=== PATIENT | female | born 1980 | race Caucasian/White ===

== ENCOUNTER → 2018-02-27 | Outpatient (CLI) | payer OTHER ==
[~2018-02-27] MED LIST: CYCL5TAB PO; LEVO1IUD2 INT UTER
== END | disposition home or self-care (01) ==
LOC: C.LABPBG 15:04
PROVIDERS: ATTEND Family Medicine
DX: Z00.00 Encounter for general adult medical examination without abnormal findings (principal)

== ENCOUNTER → 2018-03-14 | Outpatient (CLI) | payer OTHER | END | disposition home or self-care (01) | LOC: C.LABSPEC 15:27 | PROVIDERS: ATTEND Family Medicine | DX: R30.0 Dysuria (principal) ==

== ENCOUNTER 2023-10-30 20:47 | Inpatient (IN) ==
[2023-10-30 21:44] LABS: Basophils # (auto) 0.05 K/uL (0.00-0.20); Basophils % (auto) 0.7 %; Eosinophils # (auto) 0.02 K/uL (0.00-0.50); Eosinophils % (auto) 0.3 %; Hematocrit (blood only) 39.8 % (37.0-47.0); Hemoglobin 13.9 g/dl (12.0-16.0); Immature Granulocytes # (auto) 0.02 K/uL (0.01-0.20); Immature Granulocytes % (auto) 0.3 %; Lymphocytes # (auto) 1.27 K/uL (1.20-3.40); Lymphocytes % (auto) 16.9 %; Mean Corpuscular Hemoglobin 33.7 pg (25.0-34.0); Mean Corpuscular Hgb Conc 34.9 g/dL (32.0-36.0); Mean Corpuscular Volume 96.4 fL (80.0-100.0); Mean Platelet Volume 12.6 fL (9.4-12.4); Monocytes # (auto) 0.62 K/uL (0.11-0.59); Monocytes % (auto) 8.3 %; Neutrophils # (auto) 5.53 K/uL (1.40-6.50); Neutrophils % (auto) 73.5 %; Platelet Count 161 K/uL (130-400); RDW Coefficient of Variation 14.6 % (11.5-14.5); RDW Standard Deviation 51.4 fL (36.4-46.3); Red Blood Count 4.13 M/uL (4.20-5.40); White Blood Count 7.51 K/ul (4.8-10.8)
[2023-10-30 21:46] LABS: Appearance Urine Slightly Cloudy (Clear)
[2023-10-30 21:49] LABS: Specific Gravity Urine 1.018 (1.000-1.030)
[2023-10-30 21:53] LABS: Bacteria Urine None Seen (None Seen); Epithelial Cell Urine >20 /hpf (0-2); Hyaline Casts Urine Present /lpf (None Presnt); RBC Urine 0-2 /hpf (0-2); WBC Urine >50 /hpf (0-5)
[2023-10-30 22:03] LABS: BUN Creatinine Ratio 5.7 (10-20); Bilirubin,Total 9.8 mg/dl (0.2-1.0); Calcium 9.4 mg/dl (8.6-10.3); Creatinine Clr Calc Pharmacy 82.3 ml/min; Est GFR (African American) 124.7 ml/min; Est GFR (Non-African American) 107.6 ml/min; Globulin 4.1 gm/dl (2.5-4.0); Potassium 3.2 mmol/L (3.5-5.1); Total Protein 8.1 gm/dl (6.0-8.3)
--- NOTE | 2023-10-31 01:02 | Emergency Department Note ---
Impression & Plan Acute upper abdominal pain, Elevated LFTs, Jaundice ED Provider Note NAME: NURY FONTAINE AGE: 43 SEX: Female INFORMANT: Patient and ED PROVIDER(S): Castro Jay MD CHIEF COMPLAINT: Abd pain, vomiting PLAN: Disposition: Still a patient Outpatient prescription management: none Referral: none MEDICAL DECISION MAKING: Pt presented due to abdominal pain and vomiting. IV established and blood work obtained. Pt found to have signifcant elevation of LFTs. Treated with zofran and dilaudid PRN. CT imaging and US ordered. Frequently reassessed. CBC unremarkable as were other labs. Patient had unremarkable US and CT except for sludge in GB. Discussed need for further testing as an inpatient and they were in agreement. Contacted night hospitalist Dr. Puga who asked for MRCP and GI consult. Day crew will be notified. This was ordered. Discussed with Dr. You who asked for GI's input so I talked with Dr. Tolentino who noted it would be difficult to assess next steps without MR results. Since there may be a need for ERCP and transfer admission is pending at this time. Patient signed out to Dr. Matamoros at the change of shift. Care/management discussed with: reservation manager Level of care consideration(s): After review of the information above and other included data, I feel the patient requires escalation of care to admission. Triage Nursing notes: reviewed and agree them. Vital Signs: reviewed and remarkable for no significant abnormalities Additional History obtained from: Pts regarding previous symptoms and imaging as outpatient. Chronic Medical/Social Conditions affecting care: none Prior/ Outside/ External records reviewed: none Differential Diagnosis: PUD, biliary pathology, Renal colic, UTI, appendicitis, diverticulitis, mesenteric ischemia, aortic pathology, infections, inflammatory bowel disease, as well as other pathologies. Diagnostics, independently interpreted by me: ECG: none Cardiac Monitoring: Cardiac monitoring ordered by me: The patient was placed on continuous cardiac monitoring and observed. It revealed a normal sinus rhythm at 86 beats per minute without ectopy or evidence of dysrhythmia. Medical decision rules: none Imaging studies: I refer you to the EMR for further details. HPI: 43 year old Female arrives for evaluation of vomiting and abdominal pain. This started two days ago and is worsening. The patient also notes the following associated symptoms, jaundice,chills. The patient has found no relieving factors. Current pain is rated as 8/10. hx of biliary colic like symptoms with mild LFT elevations, but no definitive diagnosis made. Pt denies LOC, headache, fevers, visual changes, neck pain, chest pain, breathing difficulties, back pain, melena, hematochezia, urinary symptoms, numbness, weakness, lymphadenopathy, rash, or other complaints. PAST MEDICAL HISTORY: See Below, anxiety PAST SURGICAL HISTORY: See Below, c section SOCIAL HISTORY: See Below, HOME MEDICATIONS: See Below ALLERGIES: See Below VITALS: See Below PHYSICAL EXAMINATION: GENERAL: Awake, alert, uncomfortable-appearing, in no distress HENT: Normocephalic, atraumatic. Oropharynx unremarkable. EYES: Normal conjunctiva. Sclera icteric. NECK: Inspection normal. Non-tender. Supple. No nuchal rigidity. FROM. No masses. RESPIRATORY: Clear to auscultation. No wheezes. No rales. Normal respiratory effort. CARDIAC: Normal rate. Normal rhythm. No murmurs. No rubs. Extremities warm and well perfused. Pulses equal. No JVD. GI: Soft, non-distended. RUQ tenderness to palpation. No rebound or guarding. No masses. RECTAL: Deferred. MUSCULOSKELETAL: Atraumatic. Chest examination reveals no tenderness. The back is symmetrical on inspection without obvious abnormality. There is no CVA tenderness to palpation. No joint edema. LOWER EXTREMITIES: Calves are equal size bilaterally and non-tender. No edema. No discoloration. NEURO: Normal sensorium. No sensory or motor deficits noted. SKIN: No rash or jaundice noted. PROCEDURES: none CRITICAL CARE: none OBSERVATION NOTE: none Past Med/Surg History Medical History (Updated 11/01/23 @ 21:18 by Vijaya You MD) Fatty liver Dyskinesia of gallbladder GERD (gastroesophageal reflux disease) History of COVID-19 (02/2021) Feb 2021, January 2022 Anxiety Vertigo Common migraine without aura Heartburn Surgical History S/P tubal ligation H/O section x 2 Family History Grandmother (Maternal) Breast cancer Aunt Breast cancer MATERNAL Sister Migraine headache Grandfather Prostate cancer Father Fatty liver Other Myocardial infarction Denies family history of Ovarian cancer Colorectal cancer Social History Smoking Status: Former smoker Age Started Using Tobacco: 19; Age Quit Using Tobacco: 20; Hx Alcohol Use: Yes Alcohol type: wine Alcohol Intake Frequency: 4 or More x per/Week Hx Substance Use: No Preferred Language: Bengali Communication Ability: Effective Visual Impairment: No Limitations Hearing Ability: Normal [employer] Dies Required: No Beliefs That Will Affect Care: None marital status: Current Living Situation: Spouse Current Living Situation Comment: spouse, 3 children current occupational status: other current occupation: homemaker Feels Safe at Home: Yes Childhood Exposure to Second-Hand Smoke: No Diet: regular Diet Comment: well balanced diet caffeine: Yes (1 cup tea) during the past year weight has: remained stable Dental Care, Regularly: Yes Physical Activity Frequency: 3-4 Times per Week Physical Activity Frequency Comment: active w/ family/children Seatbelt Use: always Sunscreen Use: Yes Assistive Devices: None Allergies Allergies Allergy/AdvReac Type Severity Reaction Status Date / Time iodine Allergy Intermediate RASH Verified 09/18/23 11:08 ITCHING venlafaxine [From Effexor] AdvReac Intermediate Verified 09/18/23 11:08 Home Meds Home Medications Medication Instructions Recorded Confirmed fluticasone propionate 50 1 sprays intranasal DAILY #1 g 03/04/19 10/31/23 mcg/actuation nasal spray,suspension levonorgestrel 21 mcg/24 hours (8 1 ea intrauterine UD 04/04/19 10/31/23 yrs) 52 mg intrauterine device Previous Rx's Medication Instructions Recorded loratadine 10 mg tablet (Claritin) 10 mg PO DAILY #30 tabs 03/04/19 buspirone 10 mg tablet 10 mg PO BID PRN anxiety #90 tabs 02/26/23 topiramate 25 mg tablet 25 mg PO DAILY #90 tabs 04/16/23 sertraline 50 mg tablet 50 mg PO DAILY #90 tabs 05/09/23 famotidine 40 mg tablet 40 mg PO HS #90 tabs 05/24/23 pantoprazole 40 mg tablet,delayed 40 mg PO DAILY #90 tabs 09/03/23 release digital therapeutic,TAHMINA device #1 ea 09/12/23 ubrogepant 100 mg tablet (Ubrelvy) 100 mg PO ONCE PRN migraine 09/12/23 headache 30 days #10 tabs lorazepam 0.5 mg tablet (Ativan) 0.5 mg PO BID PRN anxiety #30 tabs 09/18/23 ondansetron 8 mg disintegrating 8 mg PO Q8H PRN nausea and 09/18/23 tablet vomiting #20 tabs fremanezumab-vfrm 225 mg/1.5 mL 225 mg (1.5 mL) subcut MONTHLY 90 10/11/23 subcutaneous auto-injector (Ajovy) days #135 mL ciprofloxacin HCl 500 mg tablet 500 mg PO BID 5 days #10 tabs 10/29/23 (Cipro) fluconazole 150 mg tablet 150 mg PO ONCE 1 day #1 tab 10/29/23 Results & Data (ED) Vital Signs Vital Signs - 24 hr 10/30/23 20:48 Temperature 36.9 C Temperature Source Temporal Artery Scan Pulse Rate 117 H Respiratory Rate 19 Respiratory Effort / Characteristics Non-Labored Spontaneous Respiratory Depth Normal Respiratory Pattern Regular Blood Pressure 135/89 Blood Pressure Mean 104 Pulse Oximetry 98 Oxygen Delivery Method Room Air Sepsis Recent Fever Within 48 Hours No Sepsis New/Unexplained Change in Mental Status N/A Sepsis Action Taken by Nursing No Action Required Laboratory Data 11/01/23 06:50 11/01/23 06:50 Lab Results 10/30/23 Range/Units 21:10 WBC 7.51 (4.8-10.8) K/ul RBC 4.13 L (4.20-5.40) M/uL Hgb 13.9 (12.0-16.0) g/dl Hct 39.8 (37.0-47.0) % MCV 96.4 (80.0-100.0) fL MCH 33.7 (25.0-34.0) pg MCHC 34.9 (32.0-36.0) g/dL RDW Std Deviation 51.4 H (36.4-46.3) fL RDW Coeff of Mamie 14.6 H (11.5-14.5) % Plt Count 161 (130-400) K/uL MPV 12.6 H (9.4-12.4) fL Immature Gran % (Auto) 0.3 % Neut % (Auto) 73.5 % Lymph % (Auto) 16.9 % [place] % (Auto) 8.3 % Eos % (Auto) 0.3 % Baso % (Auto) 0.7 % Neut # (Auto) 5.53 (1.40-6.50) K/uL Lymph # (Auto) 1.27 (1.20-3.40) K/uL [place] # (Auto) 0.62 H (0.11-0.59) K/uL Eos # (Auto) 0.02 (0.00-0.50) K/uL Baso # (Auto) 0.05 (0.00-0.20) K/uL Immature Gran # (Auto) 0.02 (0.01-0.20) K/uL Sodium 137 (136-145) mmol/L Potassium 3.2 L (3.5-5.1) mmol/L Chloride 97 L (98-107) mmol/L Carbon Dioxide 26 (21-32) mmol/L Anion Gap 14 H (3-11) BUN 4 L (6-23) mg/dl Creatinine 0.70 (0.6-1.2) mg/dl Est Cr Clr Drug Dosing 82.3 ml/min Est GFR ( Amer) 124.7 ml/min Est GFR (Non-Af Amer) 107.6 ml/min BUN/Creatinine Ratio 5.7 L (10-20) Glucose 105 H (70-99(Fasting)) mg/dl Calcium 9.4 (8.6-10.3) mg/dl Total Bilirubin 9.8 H (0.2-1.0) mg/dl AST 186 H (13-39) U/L ALT 66 H (7-52) U/L Alkaline Phosphatase 245 H (34-104) U/L Total Protein 8.1 (6.0-8.3) gm/dl Albumin 4.0 (3.4-5.0) gm/dl Globulin 4.1 H (2.5-4.0) gm/dl Albumin/Globulin Ratio 1.0 (0.9-2) Lipase 30 (11-82) U/L Urine Color See Comment Urine Appearance Slightly Cloudy (Clear) Urine pH Not Reportable Ur Specific [place] 1.018 (1.000-1.030) Urine Protein Not Reportable Urine Glucose (UA) Not Reportable Urine Ketones Not Reportable Urine Blood Not Reportable Urine Nitrite Not Reportable Urine Bilirubin Not Reportable Urine Urobilinogen Not Reportable Ur Leukocyte Esterase Not Reportable Urine RBC 0-2 (0-2) /hpf Urine WBC >50 H (0-5) /hpf Ur Epithelial Cells >20 H (0-2) /hpf Urine Bacteria None Seen (None Seen) Hyaline Casts Present A (None Presnt) /lpf Administered Medications Acetaminophen (Acetaminophen 325 Mg Tab) 650 mg PO Q8H PRN PRN Reason: pain/fever Stop: 11/30/23 11:35 Last Admin: 11/01/23 20:38 Dose: 650 mg Documented By: Admin: 11/01/23 12:26 Dose: 650 mg Documented By: JEAN Buspirone HCl (Buspirone 5 Mg Tab) 10 mg PO BID PRN PRN Reason: anxiety Stop: 11/30/23 11:35 Last Admin: 11/01/23 09:09 Dose: 10 mg Documented By: JEAN Enoxaparin Sodium (Enoxaparin Inj 40 Mg/0.4 Ml Syr) 40 mg SQ Q24H BONIFACIO Stop: 11/30/23 11:59 Last Admin: 11/01/23 12:18 Dose: 40 mg Documented By: Admin: 10/31/23 13:12 Dose: 40 mg Documented By: ROBY Famotidine (Famotidine 40 Mg Tablet) 40 mg PO HS [facility] Stop: 11/30/23 20:59 Last Admin: 11/01/23 20:39 Dose: 40 mg Documented By: Admin: 10/31/23 21:27 Dose: 40 mg Documented By: JESSI Fluticasone Propionate (Fluticasone Propionate Na Spr 16 Gm Btl) 1 sprays PAMELA DAILY BONIFACIO Stop: 12/01/23 08:59 Last Admin: 11/01/23 09:56 Dose: Not Given Documented By: JEAN Hydromorphone HCl (Hydromorphone Inj 0.5 Mg/0.5 Ml Syr) 0.5 mg IV Q6H PRN PRN Reason: moderate-severe Pain Stop: 11/14/23 11:43 Last Admin: 11/01/23 18:37 Dose: 0.5 mg Documented By: Admin: 10/31/23 19:58 Dose: 0.5 mg Documented By: Admin: 10/31/23 13:19 Dose: 0.5 mg Documented By: ROBY Hydroxyzine HCl (Hydroxyzine Hcl 25 Mg Tab) 25 mg PO Q6H PRN PRN Reason: Itching Stop: 11/30/23 15:55 Last Admin: 10/31/23 21:26 Dose: 25 mg Documented By: JESSI Sodium Chloride (Nss) 1,000 mls @ 100 mls/hr IV .Q10H BONIFACIO Stop: 11/30/23 01:14 Last Admin: 11/01/23 17:26 Dose: 100 mls/hr Documented By: Infusion: 11/01/23 17:26 Dose: Infused Documented By: [facility] Infusion: 11/01/23 09:56 Dose: 50 mls/hr Documented By: [facility] Admin: 11/01/23 09:09 Dose: 125 mls/hr Documented By: [facility] Infusion: 11/01/23 09:09 Dose: Infused Documented By: [facility] Admin: 11/01/23 01:29 Dose: 125 mls/hr Documented By: Infusion: 11/01/23 01:23 Dose: Infused Documented By: Infusion: 10/31/23 22:40 Dose: 125 mls/hr Documented By: Infusion: 10/31/23 21:56 Dose: 0 mls/hr Documented By: [facility] [place] Admin: 10/31/23 16:39 Dose: 125 mls/hr Documented By: [facility] Infusion: 10/31/23 16:39 Dose: Infused Documented By: [facility] Admin: 10/31/23 10:30 Dose: 125 mls/hr Documented By: Bryson Infusion: 10/31/23 09:19 Dose: Infused Documented By: Bryson Admin: 10/31/23 01:19 Dose: 125 mls/hr Documented By: YOANDY Loratadine (Loratadine 10 Mg Tab) 10 mg PO DAILY BONIFACIO Stop: 12/01/23 08:59 Last Admin: 11/01/23 09:09 Dose: 10 mg Documented By: MARY Lorazepam (Lorazepam 0.5 Mg Tab) 0.5 mg PO BID PRN PRN Reason: anxiety Stop: 11/30/23 11:35 Last Admin: 11/01/23 16:14 Dose: 0.5 mg Documented By: JEAN Pantoprazole Sodium (Pantoprazole 40 Mg Tab) 40 mg PO BID BONIFACIO Stop: 11/30/23 11:44 Last Admin: 11/01/23 20:38 Dose: 40 mg Documented By: Admin: 11/01/23 12:17 Dose: 40 mg Documented By: Admin: 10/31/23 21:27 Dose: 40 mg Documented By: Admin: 10/31/23 13:11 Dose: 40 mg Documented By: ROBY Sertraline HCl (Sertraline Hcl 50 Mg Tablet) 50 mg PO DAILY BONIFACIO Stop: 11/30/23 11:44 Last Admin: 11/01/23 09:09 Dose: 50 mg Documented By: Admin: 10/31/23 13:11 Dose: 50 mg Documented By: ROBY Topiramate (Topiramate 25 Mg Tab) 25 mg PO DAILY BONIFACIO Stop: 11/30/23 11:44 Last Admin: 11/01/23 09:09 Dose: 25 mg Documented By: Admin: 10/31/23 13:11 Dose: 25 mg Documented By: ROBY Discontinued Medications Diphenhydramine HCl (Diphenhydramine 50 Mg/Ml Vial) 25 mg IV NOW STA Stop: 10/31/23 01:06 Last Admin: 10/31/23 02:32 Dose: 25 mg Documented By: YOANDY Hydromorphone HCl (Hydromorphone Inj 0.5 Mg/0.5 Ml Syr) 0.5 mg IV Q15M PRN PRN Reason: Pain Stop: 11/14/23 01:01 Last Admin: 10/31/23 05:34 Dose: 0.5 mg Documented By: Admin: 10/31/23 01:20 Dose: 0.5 mg Documented By: YOANDY Potassium Chloride (K [place] / Wtr) 10 meq in 100 mls @ 100 mls/hr IV Q1H BONIFACIO Stop: 11/01/23 13:29 Last Infusion: 11/01/23 17:26 Dose: Infused Documented By: Admin: 11/01/23 16:00 Dose: 100 mls/hr Documented By: Infusion: 11/01/23 15:27 Dose: Infused Documented By: Admin: 11/01/23 14:27 Dose: 100 mls/hr Documented By: Infusion: 11/01/23 14:13 Dose: Infused Documented By: [facility] Admin: 11/01/23 13:13 Dose: 100 mls/hr Documented By: Infusion: 11/01/23 13:13 Dose: Infused Documented By: [facility] Admin: 11/01/23 12:17 Dose: 100 mls/hr Documented By: Infusion: 11/01/23 10:09 Dose: Infused Documented By: [facility] Admin: 11/01/23 09:09 Dose: 100 mls/hr Documented By: JEAN Magnesium Sulfate/Dextrose (Magnesium Sulfate / D5w) 1 gm in 100 mls @ 50 mls/hr IV Q2H BONIFACIO Stop: 11/01/23 14:29 Last Infusion: 11/01/23 16:27 Dose: Infused Documented By: [facility] Admin: 11/01/23 14:12 Dose: 50 mls/hr Documented By: Infusion: 11/01/23 14:12 Dose: Infused Documented By: [facility] Admin: 11/01/23 12:17 Dose: 50 mls/hr Documented By: [facility] Infusion: 11/01/23 11:09 Dose: Infused Documented By: [facility] Admin: 11/01/23 09:09 Dose: 50 mls/hr Documented By: JEAN Sincalide 0.99 mcg/ Sodium (Chloride) 100.99 mls @ 200 mls/hr IV NOW ONE Stop: 11/01/23 10:45 Last Admin: 11/01/23 12:19 Dose: Not Given Documented By: JEAN Ioversol (Optiray 320 100ml) 100 ml IV ONCE ONE Stop: 10/31/23 03:49 Last Admin: 10/31/23 03:48 Dose: 91 ml Documented By: LEONID Lorazepam (Lorazepam 1 Mg Tab) 1 mg SL NOW STA Stop: 10/31/23 07:55 Last Admin: 10/31/23 08:00 Dose: 1 mg Documented By: RHONDA Methylprednisolone (Methylprednisolone 125 Mg/2 Ml Vial) 125 mg IV NOW STA Stop: 10/31/23 01:06 Last Admin: 10/31/23 02:32 Dose: 125 mg Documented By: YOANDY Ondansetron HCl (Ondansetron Inj 2 Mg/Ml 2 Ml Vial) 4 mg IV NOW STA Stop: 10/31/23 01:03 Last Admin: 10/31/23 01:20 Dose: 4 mg Documented By: YOANDY Potassium Chloride (Potassium Chloride Crtab 20 Meq Tabcr) 40 meq PO NOW STA Stop: 10/31/23 11:37 Last Admin: 10/31/23 13:09 Dose: 40 meq Documented By: NDW Discharge Plan Visit Data Chief Complaint: Vomiting Stated Complaint: ABD PAIN, NAUSEA, VOMITING ED Provider: Castro Jay Discharge Problem: Acute upper abdominal pain, Elevated LFTs, Jaundice Patient Disposition: Admitted As Inpatient Discharge Instructions Interventions: ED Discharge Assessment Last Done: 10/31/23 14:02
[2023-10-31] MEDS: SODIUM CHLORIDE 0.9% 1,000 ML IV SCH (01:19)
[2023-10-31] MEDS: ONDANSETRON INJ 2 MG/ML 2 ML VIAL IV STA (01:20)
[2023-10-31] MEDS: HYDROmorphone INJ 0.5 MG/0.5 ML SYR IV PRN ×2 (01:20→13:19)
[2023-10-31] MEDS: methylPREDNISolone 125 MG/2 ML VIAL IV STA (02:32)
[2023-10-31] MEDS: diphenhydrAMINE 50 MG/ML VIAL IV STA (02:32)
[2023-10-31] MEDS: OPTIRAY 320 100ml IV ONE (03:48)
--- NOTE | 2023-10-31 04:10 | Ultrasound Report ---
Exam(s): US GALLBLADDER EXAM: US Abdomen Limited, Gallbladder CLINICAL HISTORY: Reason for exam: elevated LFTs. TECHNIQUE: Real-time ultrasound of the right upper quadrant with image documentation. COMPARISON: No relevant prior studies available. FINDINGS: Liver: Coarsened hepatic echotexture with increased hepatic echogenicity. Gallbladder: Biliary sludge without cholelithiasis. Gallbladder wall measures 2 mm in thickness. Negative sonographic Hoffmann sign. Common bile duct: Common bile duct measures 3 mm in diameter. No stones. No dilation. Pancreas: Unremarkable as visualized. Right kidney: Right kidney measures 10.6 cm without hydronephrosis. IMPRESSION: Hepatic steatosis Biliary sludge without cholelithiasis or sonographic evidence of acute cholecystitis . Electronically signed by: Corby Stoddard MD 10/31/23 04:09 AM
--- NOTE | 2023-10-31 04:34 | CT Scan Report ---
Exam(s): CT ABDOMEN + PELVIS With Contrast Oral - High Density Amt: 30 ML GASTRO, IV Amt: 91 ML OPTIRAY 320 EXAM: CT Abdomen and Pelvis With Intravenous Contrast CLINICAL HISTORY: Reason for exam: elevated lfts, RUQ abd pain. TECHNIQUE: Axial computed tomography images of the abdomen and pelvis with intravenous contrast. CTDI is 7.78 mGy and DLP is 340.47 mGy-cm. Automated exposure control was utilized for the study. A dose lowering technique was utilized adhering to the principles of ALARA. CONTRAST: Patient received 30 ML GASTRO of Oral - High Density and 91 ML OPTIRAY 320 of IV contrast COMPARISON: No relevant prior studies available. FINDINGS: Lung bases: Unremarkable. No mass. No consolidation. ABDOMEN: Liver: Hepatic steatosis. Gallbladder and bile ducts: Unremarkable. No calcified stones. No ductal dilation. Pancreas: Unremarkable. No mass. No ductal dilation. Spleen: Unremarkable. No splenomegaly. Adrenals: Unremarkable. No mass. Kidneys and ureters: Unremarkable. No solid mass. No hydronephrosis. Stomach and bowel: Unremarkable. No obstruction. No mucosal thickening. PELVIS: Appendix: No findings to suggest acute appendicitis. Bladder: Unremarkable. No mass. Reproductive: IUD within the uterus. ABDOMEN and PELVIS: Intraperitoneal space: Unremarkable. No free air. No significant fluid collection. Bones/joints: No acute fracture. No dislocation. Soft tissues: Unremarkable. Vasculature: Unremarkable. No abdominal aortic aneurysm. Lymph nodes: Unremarkable. No enlarged lymph nodes. IMPRESSION: No acute findings in the abdomen or pelvis. Normal appearing appendix Hepatic steatosis Electronically signed by: Corby Stoddard MD 10/31/23 04:33 AM
[2023-10-31] MEDS: LORazepam 1 MG TAB SL STA (08:00)
--- NOTE | 2023-10-31 09:35 | Magnetic Resonance Report ---
MRCP CLINICAL HISTORY: elevated LFTs TECHNIQUE: Utilizing a 1.5 Tamara magnet and dedicated coil, multiplanar, multiecho imaging of the [facility] abdomen was performed utilizing heavily T2 weighted pulsing sequences without IV contrast. COMPARISON STUDY: Right upper quadrant ultrasound and CT of the abdomen and pelvis October 31, 2023. FINDINGS: No intra or extrahepatic biliary ductal dilatation is present. No common bile duct calculi are identified. No pancreatic ductal dilatation is present. There is no peripancreatic fluid. Hepatic steatosis is better depicted on CT and ultrasound performed earlier today. No hepatic lesions are id entified on unenhanced exam. Comment bladder sludge is better depicted on prior ultrasound. There is no gallbladder wall thickening. No pericholecystic fluid. No abdominal lymphadenopathy is present. Ca liber of visualized small and large bowel are normal. IMPRESSION: 1. No biliary ductal dilatation. No common bile duct calculi identified. 2. Hepatic steatosis and gallbladder sludge, better depicted on prior ultrasound. No evidence for acu te cholecystitis. ACT 112: Negative or not required by law. Electronically signed by: Jaxon Cerrato M.D. 10/31/2023 9:33 AM
--- NOTE | 2023-10-31 09:47 | Emergency Department Note ---
ED Visit Note Patient signed out to me at change of shift from Dr. Jay. Patient awaiting MRCP and results to decide final disposition. MRCP read by radiology as negative. I alerted Dr. You who will admit the patient. .
--- NOTE | 2023-10-31 10:06 | History & Physical Report ---
Date of Service October 31, 2023 Assessment & Plan (1) Elevated LFTs: Plan: Presents with elevated LFTs in a cholestatic pattern, new. With associated N/V/abd pain and 20+ lb weight loss over the last year. RUQ US with bile slydge in GB CT A/P with fatty liver and hepatomegaly but no GB issues, no stones, no CBD dilation MRCP negative Suspect biliary obstruction with stricture or choledocholithiasis not showing up on imaging. No evidence of sepsis or infection at this time-afebrile, no leukocytosis-no antibiotics or urgent need for EUS/ERCP at this time Only new medication is Ajovy and no known side effect of liver injury Could have underlying PBC or PSC Appreciate GI, Surgery consults Plan for HIDA scan tomorrow to further assess for cholecystitis Clear liquids for now, NPO after midnight Follow LFTs, CBC, INR, BMP Check AMA, anti-smooth muscle ab, KEYON, anti-actin IgG, acute Hepatitis panel, CMV, EBV Checked portal vein Doppler-neg for PVT Will discuss with [facility] advanced endoscopist in AM after HIDA scan to see if needs urgent transfer for ERCP vs outpatient evaluation COntinue hydration with IVFs, antiemetics as needed Hydroxyzine prn itching from jaundice (2) Acute upper abdominal pain: Plan: as above, related to hepatic inflammation, possibly choledocholithiasis dilaudid IV prn, APAP prn (3) Anxiety: Plan: continue home lorazepam, buspar, and sertraline (4) Common migraine without aura: Plan: on Ajovy injections once monthly no acute issues (5) Hypokalemia: Plan: replace with po KCl follow BMP, magnesium (6) GERD (gastroesophageal reflux disease): Plan: continue PPI, pepcid Plan DVT proph-SCDs Dispo-admit to med/surg Discussed care with at bedside History of Present Illness Chief Complaint: jaundice, N/V, abdominal pain Primary Care Provider: Amalia Molina DO This pt is a 43 yo female with a h/o migraine headaches, anxiety, and GERD who presents with progressively worsening mid and right sided abdominal pain with associated nausea/vomiting. She has been having these episodes multiple times per month for the last year where she vomits and has abdominal pain. These episodes became more frequent in the last 2 months especially and she has lost 25 lbs of weight from inability to eat or drink much. She denies hematemesis, melena, or BRBPR. Episodes tend to come on after trying to eat but sometimes she wakes up and has pain and nausea. Denies EtOH use. Her is a [employer] and noted her to be jaundiced and brought her for further evaluation. LFTs markedly abnormal in ER. MRCP obtained STAT which did not show any acute obstruction,. No acute winsome on RUQ US and CT abd/pel here. Given no urgent need for ERCP, will admit to this facility for treatment of her nausea/vomiting, and to expedite specialist evaluation Allergies Allergy/AdvReac Type Severity Reaction Status Date / Time iodine Allergy Intermediate RASH Verified 09/18/23 11:08 ITCHING venlafaxine [From Effexor] AdvReac Intermediate Verified 09/18/23 11:08 Home Medications Medication Instructions Recorded Confirmed Type fluticasone propionate 50 1 sprays intranasal DAILY #1 g 03/04/19 10/31/23 History mcg/actuation nasal spray,suspension loratadine 10 mg tablet (Claritin) 10 mg PO DAILY #30 tabs 03/04/19 10/31/23 Rx levonorgestrel 21 mcg/24 hours (8 1 ea intrauterine UD 04/04/19 10/31/23 History yrs) 52 mg intrauterine device buspirone 10 mg tablet 10 mg PO BID PRN anxiety #90 tabs 02/26/23 10/31/23 Rx topiramate 25 mg tablet 25 mg PO DAILY #90 tabs 04/16/23 10/31/23 Rx sertraline 50 mg tablet 50 mg PO DAILY #90 tabs 05/09/23 10/31/23 Rx famotidine 40 mg tablet 40 mg PO HS #90 tabs 05/24/23 10/31/23 Rx pantoprazole 40 mg tablet,delayed 40 mg PO DAILY #90 tabs 09/03/23 10/31/23 Rx release digital therapeutic,TAHMINA device #1 ea 09/12/23 09/18/23 Rx ubrogepant 100 mg tablet (Ubrelvy) 100 mg PO ONCE PRN migraine 09/12/23 10/31/23 Rx headache 30 days #10 tabs lorazepam 0.5 mg tablet (Ativan) 0.5 mg PO BID PRN anxiety #30 tabs 09/18/23 10/31/23 Rx ondansetron 8 mg disintegrating 8 mg PO Q8H PRN nausea and 09/18/23 10/31/23 Rx tablet vomiting #20 tabs fremanezumab-vfrm 225 mg/1.5 mL 225 mg (1.5 mL) subcut MONTHLY 90 10/11/23 10/31/23 Rx subcutaneous auto-injector (Ajovy) days #135 mL ciprofloxacin HCl 500 mg tablet 500 mg PO BID 5 days #10 tabs 10/29/23 10/31/23 Rx (Cipro) fluconazole 150 mg tablet 150 mg PO ONCE 1 day #1 tab 10/29/23 10/31/23 Rx Past Med/Surg History Medical History (Updated 10/31/23 @ 23:46 by Vijaya You MD) GERD (gastroesophageal reflux disease) History of COVID-19 (02/2021) Feb 2021, January 2022 Anxiety Vertigo Common migraine without aura Heartburn Surgical History S/P tubal ligation H/O section x 2 Family History Grandmother (Maternal) Breast cancer Aunt Breast cancer MATERNAL Sister Migraine headache Grandfather Prostate cancer Father Fatty liver Other Myocardial infarction Denies family history of Ovarian cancer Colorectal cancer Social History Smoking Status: Former smoker Age Started Using Tobacco: 19; Age Quit Using Tobacco: 20; Hx Alcohol Use: Yes Alcohol type: wine Alcohol Intake Frequency: 4 or More x per/Week Hx Substance Use: No Preferred Language: Congolese Communication Ability: Effective Visual Impairment: No Limitations Hearing Ability: Normal Logging Superintendent Required: No Beliefs That Will Affect Care: None marital status: Current Living Situation: Spouse Current Living Situation Comment: spouse, 3 children current occupational status: other current occupation: homemaker Feels Safe at Home: Yes Childhood Exposure to Second-Hand Smoke: No Diet: regular Diet Comment: well balanced diet caffeine: Yes (1 cup tea) during the past year weight has: remained stable Dental Care, Regularly: Yes Physical Activity Frequency: 3-4 Times per Week Physical Activity Frequency Comment: active w/ family/children Seatbelt Use: always Sunscreen Use: Yes Assistive Devices: Glasses Review of Systems Review of Systems: All systems reviewed & are unremarkable except as noted in HPI & below Physical Exam Constitutional: WD/WN, vitals as above Neck: trachea midline, no thyromegaly Respiratory: normal respiratory effort, lungs clear to auscultation Cardiovascular: RRR, no murmur, no edema Chest (Breasts): Chest: normal inspection of chest Gastrointestinal (Abdomen): Inspection/Auscultation: abdomen normal to inspection Musculoskeletal: Extremities: extremities normal to inspection; no cyanosis and no clubbing Skin: + jaundice Neurologic: moves all extremities and awake; no focal motor deficits Psychiatric: A+Ox3, euthymic affect Lymphatic: no lymphedema Results & Data Results & Data Vital Signs (Past 12 Hours) Vital Signs Pulse Pulse Resp BP BP Pulse Ox O2 Del Method 10/31/23 09:52 94 H 10/31/23 09:16 105 H 24 95 10/31/23 09:16 126/89 10/31/23 09:14 100 H 16 96 10/31/23 08:10 97 10/31/23 07:30 92 H 27 H 96 10/31/23 07:30 121/80 10/31/23 07:00 92 H 13 98 10/31/23 07:00 128/94 10/31/23 06:30 132/95 10/31/23 06:30 88 15 96 10/31/23 06:05 124/81 10/31/23 06:05 92 H 19 96 10/31/23 06:00 93 H 15 97 10/31/23 06:00 88 15 129/81 96 Room Air 10/31/23 05:49 96 H 10/31/23 05:30 90 15 96 10/31/23 05:30 134/90 10/31/23 05:00 94 H 15 97 10/31/23 05:00 135/99 10/31/23 05:00 87 15 134/90 98 Room Air 10/31/23 04:30 136/94 10/31/23 04:30 93 H 15 97 10/31/23 04:00 134/87 10/31/23 04:00 101 H 13 97 10/31/23 03:30 116/80 10/31/23 03:30 99 H 25 H 98 10/31/23 03:00 117/93 10/31/23 03:00 92 H 18 97 10/31/23 03:00 96 H 17 134/87 96 10/31/23 02:39 101 H 23 98 10/31/23 02:39 125/96 10/31/23 02:30 106 H 21 10/31/23 02:25 110 H 17 10/31/23 01:52 100 H 10/31/23 01:30 102 H 25 H 99 10/31/23 01:30 137/98 10/31/23 01:19 105 H 13 100 10/31/23 01:16 105 H 17 98 Room Air 10/31/23 01:15 107 H 17 139/93 98 Room Air Laboratory Results 10/31/23 10/30/23 Range/Units 10:26 21:10 TSH 1.290 (0.300-4.500) uIu/ml Urine RBC 0-2 (0-2) /hpf Urine WBC >50 H (0-5) /hpf Ur Epithelial Cells >20 H (0-2) /hpf Urine Bacteria None Seen (None Seen) Hyaline Casts Present A (None Presnt) /lpf KEYON Screen Pending Anti-Mitochondrial Ab Pending Actin IgG Antibody Pending CMV IgM Ab Pending CMV IgG Ab/TORCH Pending EBV Capsid Ag IgG Ab Pending EBV Capsid Ag IgM Ab Pending EBV EA Restrict+Diffuse Pending EBV Nuclear Antigen Ab Pending EBV Antibody Interp Pending Hepatitis A IgM Ab Pending Hep Bs Antigen Pending Hep Bs Ag Confirmation Pending Hep B Core IgM Ab Pending Hepatitis C Ab (EIA) Pending Diagnostic Findings Abdomen/Pelvis CT 10/31/23 01:02 Exam(s): CT ABDOMEN + PELVIS With Contrast Oral - High Density Amt: 30 ML GASTRO, IV Amt: 91 ML OPTIRAY 320 EXAM: CT Abdomen and Pelvis With Intravenous Contrast CLINICAL HISTORY: Reason for exam: elevated lfts, RUQ abd pain. TECHNIQUE: Axial computed tomography images of the abdomen and pelvis with intravenous contrast. CTDI is 7.78 mGy and DLP is 340.47 mGy-cm. Automated exposure control was utilized for the study. A dose lowering technique was utilized adhering to the principles of ALARA. CONTRAST: Patient received 30 ML GASTRO of Oral - High Density and 91 ML OPTIRAY 320 of IV contrast COMPARISON: No relevant prior studies available. FINDINGS: Lung bases: Unremarkable. No mass. No consolidation. ABDOMEN: Liver: Hepatic steatosis. Gallbladder and bile ducts: Unremarkable. No calcified stones. No ductal dilation. Pancreas: Unremarkable. No mass. No ductal dilation. Spleen: Unremarkable. No splenomegaly. Adrenals: Unremarkable. No mass. Kidneys and ureters: Unremarkable. No solid mass. No hydronephrosis. Stomach and bowel: Unremarkable. No obstruction. No mucosal thickening. PELVIS: Appendix: No findings to suggest acute appendicitis. Bladder: Unremarkable. No mass. Reproductive: IUD within the uterus. ABDOMEN and PELVIS: Intraperitoneal space: Unremarkable. No free air. No significant fluid collection. Bones/joints: No acute fracture. No dislocation. Soft tissues: Unremarkable. Vasculature: Unremarkable. No abdominal aortic aneurysm. Lymph nodes: Unremarkable. No enlarged lymph nodes. IMPRESSION: No acute findings in the abdomen or pelvis. Normal appearing appendix Hepatic steatosis Electronically signed by: Corby Stoddard MD 10/31/23 04:33 AM Gallbladder Ultrasound 10/31/23 01:02 Exam(s): US GALLBLADDER EXAM: US Abdomen Limited, Gallbladder CLINICAL HISTORY: Reason for exam: elevated LFTs. TECHNIQUE: Real-time ultrasound of the right upper quadrant with image documentation. COMPARISON: No relevant prior studies available. FINDINGS: Liver: Coarsened hepatic echotexture with increased hepatic echogenicity. Gallbladder: Biliary sludge without cholelithiasis. Gallbladder wall measures 2 mm in thickness. Negative sonographic Hoffmann sign. Common bile duct: Common bile duct measures 3 mm in diameter. No stones. No dilation. Pancreas: Unremarkable as visualized. Right kidney: Right kidney measures 10.6 cm without hydronephrosis. IMPRESSION: Hepatic steatosis Biliary sludge without cholelithiasis or sonographic evidence of acute cholecystitis . Electronically signed by: Corby Stoddard MD 10/31/23 04:09 AM Cholangiopancreatography MRI 10/31/23 06:57 MRCP CLINICAL HISTORY: elevated LFTs TECHNIQUE: Utilizing a 1.5 Tamara magnet and dedicated coil, multiplanar, multiecho imaging of the upper abdomen was performed utilizing heavily T2 weighted pulsing sequences without IV contrast. COMPARISON STUDY: Right upper quadrant ultrasound and CT of the abdomen and pelvis October 31, 2023. FINDINGS: No intra or extrahepatic biliary ductal dilatation is present. No common bile duct calculi are identified. No pancreatic ductal dilatation is present. There is no peripancreatic fluid. Hepatic steatosis is better depicted on CT and ultrasound performed earlier today. No hepatic lesions are identified on unenhanced exam. Comment bladder sludge is better depicted on prior ultrasound. There is no gallbladder wall thickening. No pericholecystic fluid. No abdominal lymphadenopathy is present. Caliber of visualized small and large bowel are normal. IMPRESSION: 1. No biliary ductal dilatation. No common bile duct calculi identified. 2. Hepatic steatosis and gallbladder sludge, better depicted on prior ultrasound. No evidence for acute cholecystitis. ACT 112: Negative or not required by law. Electronically signed by: Jaxon Cerrato M.D. 10/31/2023 9:33 AM Portal Vein US 10/31/23 15:15 Exam(s): US OTHER EXAM: US Duplex Arterial/Venous of the Abdomen, Complete CLINICAL HISTORY: Reason for exam: elevated LFTs, abdominal pain. TECHNIQUE: Real-time duplex ultrasound scan of the abdomen integrating B-mode two- dimensional vascular structure, Doppler spectral analysis and color flow Doppler imaging. COMPARISON: Abdominal ultrasound from October 31, 2023 FINDINGS: Portal veins: The portal vein is patent with normal hepatopetal flow in the main portal vein velocity 18 cm/s. The right portal vein is patent, 11 cm/s. The left portal vein is patent, 11 cm/s. Hepatic artery: The hepatic artery is patent with peak systolic velocity of 70 cm/s and a normal waveform with resistive index of 0.69. The right and left hepatic arteries are patent with resistive indices of 0.61 and 0.64. Hepatic veins: The left, right, and middle hepatic veins are patent and unremarkable. Splenic vein: Unremarkable. Normal flow on color and spectral Doppler imaging. Inferior vena cava: The IVC is patent and unremarkable. IMPRESSION: No acute findings in the abdominal vasculature. Electronically signed by: Celso Puga MD 10/31/23 23:02 PM Code Status & VTE Plan Code Status FULL CODE VTE Prophylaxis Plan VTE Prophylaxis will be ordered: Yes PG Care Time/CCT Total # of Minutes Spent Total Time Spent with Patient: Total time spent is greater than 50% in coordination of care (as documented) at patient's floor/unit and/or counseling patient: Coding Level of Care Code 96133 INT INP/OBS CARE 3/75MIN Diagnoses Elevated LFTs R79.89 Acute upper abdominal pain R10.10 Anxiety F41.9 Common migraine without aura G43.009 Hypokalemia E87.6 GERD (gastroesophageal reflux disease) K21.9
--- NOTE | 2023-10-31 11:27 | Gastrointestinal Consultation ---
Date of Consultation October 31, 2023 Assessment & Plan (1) Jaundice: (2) Elevated LFTs: (3) Acute upper abdominal pain: Plan Patient with a several year history of nausea, vomiting, abdominal pain that has worsened in the past few weeks. new jaundice. imaging thus far has been unremarkable. discussed case with Dr. Sparks. - start protonix 40mg po bid. - check KEYON, AMA, ASMA, acute hep panel, CMV, and EBV. - check HIDA scan. - recommend surgical consultation for possible gallbladder etiology. Supervising Physician Co-Signing Physician Notes Agree with WYATT Harley as above Interviewed and examined patient and discussed case and agree with findings/exam Abd: Soft, NT, ND, +BS Continue current therapy and supportive care Await results from HIDA and bloodwork History of Present Illness Reason for Consultation: elevated LFTs, bile sludge, pending MRCP. Requesting Physician: Castro Jay MD Attending Physician: Vijaya You MD History of Present Illness Patient is a 43 year old female who presented to the ED with complains of worsening nausea, vomiting, and abdominal pain. She tells me that she has not felt right since she had covid in 2020 but her symptoms worsened over the past few weeks. symptoms are worsened with foods and eating. she has been having issues with oral intake. heartburn is controlled as outpatient with combination of pepcid and protonix. she does report jaundice which is new this week and she first noticed 2 days ago. reports rare etoh use. Bowel movements are at baseline with 1 stool a day and she denies any bleeding or melena. She reports a family history of gallbladder disease in her mother. She tells me she has not had an EGD or colonoscopy in the past. she was planned to see GI in the coming weeks for evaluation of symptoms. 10/30/23 t bili 9.8, AST 186, ALT 66, AK 245, lipase 30. 10/31/23 US hepatic steatosis, biliary sludge. 10/31/23 CT A/P - hepatic steatosis, no acute findings in abdomen or pelvis. 10/31/23 MRI unremarkable. Allergies Allergy/AdvReac Type Severity Reaction Status Date / Time iodine Allergy Intermediate RASH Verified 09/18/23 11:08 ITCHING venlafaxine [From Effexor] AdvReac Intermediate Verified 09/18/23 11:08 Home Medications Medication Instructions Recorded Confirmed Type fluticasone propionate 50 1 sprays intranasal DAILY #1 g 03/04/19 10/31/23 History mcg/actuation nasal spray,suspension loratadine 10 mg tablet (Claritin) 10 mg PO DAILY #30 tabs 03/04/19 10/31/23 Rx levonorgestrel 21 mcg/24 hours (8 1 ea intrauterine UD 04/04/19 10/31/23 History yrs) 52 mg intrauterine device buspirone 10 mg tablet 10 mg PO BID PRN anxiety #90 tabs 02/26/23 10/31/23 Rx topiramate 25 mg tablet 25 mg PO DAILY #90 tabs 04/16/23 10/31/23 Rx sertraline 50 mg tablet 50 mg PO DAILY #90 tabs 05/09/23 10/31/23 Rx famotidine 40 mg tablet 40 mg PO HS #90 tabs 05/24/23 10/31/23 Rx pantoprazole 40 mg tablet,delayed 40 mg PO DAILY #90 tabs 09/03/23 10/31/23 Rx release digital therapeutic,TAHMINA device #1 ea 09/12/23 09/18/23 Rx ubrogepant 100 mg tablet (Ubrelvy) 100 mg PO ONCE PRN migraine 09/12/23 10/31/23 Rx headache 30 days #10 tabs lorazepam 0.5 mg tablet (Ativan) 0.5 mg PO BID PRN anxiety #30 tabs 09/18/2305/15 Rx ondansetron 8 mg disintegrating 8 mg PO Q8H PRN nausea and 09/18/23 10/31/23 Rx tablet vomiting #20 tabs fremanezumab-vfrm 225 mg/1.5 mL 225 mg (1.5 mL) subcut MONTHLY 90 10/11/2305/15 Rx subcutaneous auto-injector (Ajovy) days #135 mL ciprofloxacin HCl 500 mg tablet 500 mg PO BID 5 days #10 tabs 10/29/23 10/31/23 Rx (Cipro) fluconazole 150 mg tablet 150 mg PO ONCE 1 day #1 tab 10/29/23 10/31/23 Rx Patient History Medical History History of COVID-19 (02/2021) Anxiety Vertigo Common migraine without aura Heartburn Surgical History S/P tubal ligation H/O section Family History Grandmother (Maternal) Breast cancer Aunt Breast cancer Sister Migraine headache Grandfather Prostate cancer Father Fatty liver Other Myocardial infarction Denies family history of Ovarian cancer Colorectal cancer Social History Smoking Status: Never smoker Age Started Using Tobacco: 19; Age Quit Using Tobacco: 20; Hx Alcohol Use: Yes Alcohol type: wine Alcohol Intake Frequency: 4 or More x per/Week Hx Substance Use: No Preferred Language: Romanian Communication Ability: Effective Visual Impairment: No Limitations Hearing Ability: Normal Machine Engraver Required: No Beliefs That Will Affect Care: None marital status: Current Living Situation: Family Current Living Situation Comment: spouse, 3 children current occupational status: other current occupation: homemaker Feels Safe at Home: Yes Childhood Exposure to Second-Hand Smoke: No Diet: regular Diet Comment: well balanced diet caffeine: Yes (1 cup tea) during the past year weight has: remained stable Dental Care, Regularly: Yes Physical Activity Frequency: 3-4 Times per Week Physical Activity Frequency Comment: active w/ family/children Seatbelt Use: always Sunscreen Use: Yes Review of Systems Review of Systems: All systems reviewed & are unremarkable except as noted in HPI & below Physical Exam Constitutional: WD/WN, vitals as above Respiratory: normal respiratory effort, lungs clear to auscultation Cardiovascular: RRR, no murmur, no edema Gastrointestinal (Abdomen): RUQ tenderness to palpation, no guarding, soft, normal bowel sounds. Skin: no rashes, warm and dry Psychiatric: Orientation: alert and oriented x 3 Results & Data Vital Signs (Past 12 Hours) Vital Signs Pulse Pulse Resp BP BP Pulse Ox O2 Del Method 10/31/23 09:52 94 H 10/31/23 09:16 105 H 24 95 10/31/23 09:16 126/89 10/31/23 09:14 100 H 16 96 10/31/23 08:10 97 10/31/23 07:30 92 H 27 H 96 10/31/23 07:30 121/80 10/31/23 07:00 92 H 13 98 10/31/23 07:00 128/94 10/31/23 06:30 132/95 10/31/23 06:30 88 15 96 10/31/23 06:05 124/81 10/31/23 06:05 92 H 19 96 10/31/23 06:00 93 H 15 97 10/31/23 06:00 88 15 129/81 96 Room Air 10/31/23 05:49 96 H 10/31/23 05:30 90 15 96 10/31/23 05:30 134/90 10/31/23 05:00 94 H 15 97 10/31/23 05:00 135/99 10/31/23 05:00 87 15 134/90 98 Room Air 10/31/23 04:30 136/94 10/31/23 04:30 93 H 15 97 10/31/23 04:00 134/87 10/31/23 04:00 101 H 13 97 10/31/23 03:30 116/80 10/31/23 03:30 99 H 25 H 98 10/31/23 03:00 117/93 10/31/23 03:00 92 H 18 97 10/31/23 03:00 96 H 17 134/87 96 10/31/23 02:39 101 H 23 98 10/31/23 02:39 125/96 10/31/23 02:30 106 H 21 10/31/23 02:25 110 H 17 10/31/23 01:52 100 H 10/31/23 01:30 102 H 25 H 99 10/31/23 01:30 137/98 10/31/23 01:19 105 H 13 100 10/31/23 01:16 105 H 17 98 Room Air 10/31/23 01:15 107 H 17 139/93 98 Room Air Coding Level of Care Code 29246 IN/OBS CONSULT LVL 4,60M Diagnoses Jaundice R17 Elevated LFTs R79.89 Acute upper abdominal pain R10.10
[2023-10-31] MEDS ORDERED: PANTOprazole 40 MG TAB PO SCH (11:36)
[2023-10-31] MEDS ORDERED: ONDANSETRON INJ 2 MG/ML 2 ML VIAL IV PRN (11:36)
[2023-10-31] MEDS ORDERED: LEVONORGESTREL (MIRENA) IUD PV PRN (12:00)
[2023-10-31] MEDS: POTASSIUM CHLORIDE CRTAB 20 MEQ TABCR PO STA (13:09)
[2023-10-31] MEDS: PANTOprazole 40 MG TAB PO SCH (13:11)
[2023-10-31] MEDS: SERTRALINE HCL 50 MG TABLET PO SCH (13:11)
[2023-10-31] MEDS: TOPIRAMATE 25 MG TAB PO SCH (13:11)
[2023-10-31] MEDS: ENOXAPARIN INJ 40 MG/0.4 ML SYR SQ SCH (13:12)
--- NOTE | 2023-10-31 16:58 | Surgery Consultation ---
Date of Consultation October 31, 2023 Assessment & Plan (1) Jaundice: (2) Elevated LFTs: (3) Upper abdominal pain: Plan 43 year old female with history of intermittent nausea, vomiting, upper abdominal pain, unintentional weight loss over the past year who presented to ED with increasing frequency of symptoms and jaundice in the past week. Imaging with ct scan abd/pelvis, ultrasound, and MRCP all showing no signs of acute cholecystitis or biliary dilatation or obstruction. No leukocytosis. Afebrile. However labs show significantly elevated total bilirubin of 9.8 and elevated LFTs. Given unintentional weight loss and bilirubin of 9, would recommend advance endoscopy procedure with EUS +/- ERCP to rule out stricture/mass/lesion/stone not seen on imaging. Would not recommend upfront surgical intervention for cholecystectomy as this would not manage underlying biliary obstruction. Dr. Fatima has seen patient and reviewed with Dr. You. See addendum for further recommendations/plan. Supervising Physician Co-Signing Physician Notes I have seen and examined the patient personally and agree with the above assessment and plan. In brief, she has a history of nausea vomiting and upper abdominal pain with a 20 pound weight loss over the past year who presents the emergency department with increasing symptoms and jaundice. Total bilirubin is 9.8. She will require advanced endoscopic evaluation including EUS plus or minus an ERCP to rule out stricture or mass lesion or an impacted stone. If this cannot be done as an outpatient, she will require transfer to a center where they have there is advanced GI procedures. History of Present Illness Reason for Consultation: elevated lfts, abdominal pain Requesting Physician: Vijaya You MD Attending Physician: Vijaya You MD History of Present Illness Arabella is a 43 year-old female with history of intermittent nausea, vomiting, upper abdominal pain and unintentional weight loss of 20 pounds over last year. Noticed increased frequency of symptoms with jaundice starting Sunday. Scheduled to see Gi in 1 month. States the pain will be in the morning after she wakes up or after eating , fatty/greasy foods do seem to make symptoms worse. Family history of Crohn's disease. at bedside states she had history of jaundice before but self resolved quickly. No fevers. No prior endoscopy. Drinks alcohol about 2 drinks a few times a week. Allergies Allergy/AdvReac Type Severity Reaction Status Date / Time iodine Allergy Intermediate RASH Verified 09/18/23 11:08 ITCHING venlafaxine [From Effexor] AdvReac Intermediate Verified 09/18/23 11:08 Home Medications Medication Instructions Recorded Confirmed Type fluticasone propionate 50 1 sprays intranasal DAILY #1 g 03/04/19 10/31/23 History mcg/actuation nasal spray,suspension loratadine 10 mg tablet (Claritin) 10 mg PO DAILY #30 tabs 03/04/19 10/31/23 Rx levonorgestrel 21 mcg/24 hours (8 1 ea intrauterine UD 04/04/19 10/31/23 History yrs) 52 mg intrauterine device buspirone 10 mg tablet 10 mg PO BID PRN anxiety #90 tabs 02/26/23 10/31/23 Rx topiramate 25 mg tablet 25 mg PO DAILY #90 tabs 04/16/23 10/31/23 Rx sertraline 50 mg tablet 50 mg PO DAILY #90 tabs 05/09/23 10/31/23 Rx famotidine 40 mg tablet 40 mg PO HS #90 tabs 05/24/23 10/31/23 Rx pantoprazole 40 mg tablet,delayed 40 mg PO DAILY #90 tabs 09/03/23 10/31/23 Rx release digital therapeutic,TAHMINA device #1 ea 09/12/23 09/18/23 Rx ubrogepant 100 mg tablet (Ubrelvy) 100 mg PO ONCE PRN migraine 09/12/23 10/31/23 Rx headache 30 days #10 tabs lorazepam 0.5 mg tablet (Ativan) 0.5 mg PO BID PRN anxiety #30 tabs 09/18/23 10/31/23 Rx ondansetron 8 mg disintegrating 8 mg PO Q8H PRN nausea and 09/18/23 10/31/23 Rx tablet vomiting #20 tabs fremanezumab-vfrm 225 mg/1.5 mL 225 mg (1.5 mL) subcut MONTHLY 90 10/11/23 10/31/23 Rx subcutaneous auto-injector (Ajovy) days #135 mL ciprofloxacin HCl 500 mg tablet 500 mg PO BID 5 days #10 tabs 10/29/23 10/31/23 Rx (Cipro) fluconazole 150 mg tablet 150 mg PO ONCE 1 day #1 tab 10/29/23 10/31/23 Rx Patient History Medical History (Updated 10/31/23 @ 23:46 by Vijaya You MD) GERD (gastroesophageal reflux disease) History of COVID-19 (02/2021) Feb 2021, January 2022 Anxiety Vertigo Common migraine without aura Heartburn Surgical History S/P tubal ligation H/O section x 2 Family History Grandmother (Maternal) Breast cancer Aunt Breast cancer MATERNAL Sister Migraine headache Grandfather Prostate cancer Father Fatty liver Other Myocardial infarction Denies family history of Ovarian cancer Colorectal cancer Social History Smoking Status: Former smoker Age Started Using Tobacco: 19; Age Quit Using Tobacco: 20; Hx Alcohol Use: Yes Alcohol type: wine Alcohol Intake Frequency: 4 or More x per/Week Hx Substance Use: No Preferred Language: Montserratian Communication Ability: Effective Visual Impairment: No Limitations Hearing Ability: Normal Crisis Worker Required: No Beliefs That Will Affect Care: None marital status: Current Living Situation: Spouse Current Living Situation Comment: spouse, 3 children current occupational status: other current occupation: homemaker Feels Safe at Home: Yes Childhood Exposure to Second-Hand Smoke: No Diet: regular Diet Comment: well balanced diet caffeine: Yes (1 cup tea) during the past year weight has: remained stable Dental Care, Regularly: Yes Physical Activity Frequency: 3-4 Times per Week Physical Activity Frequency Comment: active w/ family/children Seatbelt Use: always Sunscreen Use: Yes Assistive Devices: None Review of Systems Review of Systems: All systems reviewed & are unremarkable except as noted in HPI & below Physical Exam Constitutional: WD/WN, vitals as above cooperative and comfortable; no acute distress and not ill appearing Respiratory: normal respiratory effort; no respiratory distress, no labored breathing and no retractions Gastrointestinal (Abdomen): Inspection/Auscultation: abdomen normal to inspection and normal bowel sounds; abdomen not distended Percuss ion/Palpation: + abdomen tender (RUQ and epigastric) and abdomen soft; no guarding, abdomen not rigid and abdomen not firm Skin: no rashes, warm and dry + jaundice Psychiatric: Orientation: alert and oriented x 3 Results & Data Vital Signs (Past 12 Hours) Vital Signs Temp Pulse Pulse Resp BP BP BP 10/31/23 14:51 10/31/23 14:20 36.7 C 93 H 16 122/76 10/31/23 12:00 94 H 12 10/31/23 11:30 93 H 11 L 10/31/23 11:30 130/93 10/31/23 11:15 93 H 12 10/31/23 11:15 127/89 10/31/23 11:00 98 H 19 10/31/23 10:30 95 H 18 10/31/23 10:00 94 H 16 10/31/23 10:00 120/83 10/31/23 09:52 94 H 10/31/23 09:30 116/82 10/31/23 09:30 95 H 17 10/31/23 09:16 105 H 24 10/31/23 09:16 126/89 10/31/23 09:14 100 H 16 10/31/23 08:10 10/31/23 07:30 92 H 27 H 10/31/23 07:30 121/80 10/31/23 07:00 92 H 13 10/31/23 07:00 128/94 10/31/23 06:30 132/95 10/31/23 06:30 88 15 10/31/23 06:05 124/81 10/31/23 06:05 92 H 19 10/31/23 06:00 93 H 15 10/31/23 06:00 88 15 129/81 10/31/23 05:49 96 H 10/31/23 05:30 90 15 10/31/23 05:30 134/90 10/31/23 05:00 94 H 15 10/31/23 05:00 135/99 10/31/23 05:00 87 15 134/90 Pulse Ox O2 Del Method 10/31/23 14:51 Room Air 10/31/23 14:20 96 Room Air 10/31/23 12:00 97 10/31/23 11:30 97 10/31/23 11:30 10/31/23 11:15 96 10/31/23 11:15 10/31/23 11:00 98 10/31/23 10:30 98 10/31/23 10:00 95 10/31/23 10:00 10/31/23 09:52 10/31/23 09:30 10/31/23 09:30 94 10/31/23 09:16 95 10/31/23 09:16 10/31/23 09:14 96 10/31/23 08:10 97 10/31/23 07:30 96 10/31/23 07:30 10/31/23 07:00 98 10/31/23 07:00 10/31/23 06:30 10/31/23 06:30 96 10/31/23 06:05 10/31/23 06:05 96 10/31/23 06:00 97 10/31/23 06:00 96 Room Air 10/31/23 05:49 10/31/23 05:30 96 10/31/23 05:30 10/31/23 05:00 97 10/31/23 05:00 10/31/23 05:00 98 Room Air Laboratory Results 10/31/23 10/30/23 Range/Units 10:26 21:10 WBC 7.51 (4.8-10.8) K/ul RBC 4.13 L (4.20-5.40) M/uL Hgb 13.9 (12.0-16.0) g/dl Hct 39.8 (37.0-47.0) % MCV 96.4 (80.0-100.0) fL MCH 33.7 (25.0-34.0) pg MCHC 34.9 (32.0-36.0) g/dL RDW Std Deviation 51.4 H (36.4-46.3) fL RDW Coeff of Mamie 14.6 H (11.5-14.5) % Plt Count 161 (130-400) K/uL MPV 12.6 H (9.4-12.4) fL Immature Gran % (Auto) 0.3 % Neut % (Auto) 73.5 % Lymph % (Auto) 16.9 % [place] % (Auto) 8.3 % Eos % (Auto) 0.3 % Baso % (Auto) 0.7 % Neut # (Auto) 5.53 (1.40-6.50) K/uL Lymph # (Auto) 1.27 (1.20-3.40) K/uL [place] # (Auto) 0.62 H (0.11-0.59) K/uL Eos # (Auto) 0.02 (0.00-0.50) K/uL Baso # (Auto) 0.05 (0.00-0.20) K/uL Immature Gran # (Auto) 0.02 (0.01-0.20) K/uL Sodium 137 (136-145) mmol/L Potassium 3.2 L (3.5-5.1) mmol/L Chloride 97 L (98-107) mmol/L Carbon Dioxide 26 (21-32) mmol/L Anion Gap 14 H (3-11) BUN 4 L (6-23) mg/dl Creatinine 0.70 (0.6-1.2) mg/dl Est Cr Clr Drug Dosing 82.3 ml/min Est GFR ( Amer) 124.7 ml/min Est GFR (Non-Af Amer) 107.6 ml/min BUN/Creatinine Ratio 5.7 L (10-20) Glucose 105 H (70-99(Fasting)) mg/dl Calcium 9.4 (8.6-10.3) mg/dl Total Bilirubin 9.8 H (0.2-1.0) mg/dl AST 186 H (13-39) U/L ALT 66 H (7-52) U/L Alkaline Phosphatase 245 H (34-104) U/L Total Protein 8.1 (6.0-8.3) gm/dl Albumin 4.0 (3.4-5.0) gm/dl Globulin 4.1 H (2.5-4.0) gm/dl Albumin/Globulin Ratio 1.0 (0.9-2) Lipase 30 (11-82) U/L TSH 1.290 (0.300-4.500) uIu/ml Urine Color See Comment Urine Appearance Slightly Cloudy (Clear) Urine pH Not Reportable Ur Specific [place] 1.018 (1.000-1.030) Urine Protein Not Reportable Urine Glucose (UA) Not Reportable Urine Ketones Not Reportable Urine Blood Not Reportable Urine Nitrite Not Reportable Urine Bilirubin Not Reportable Urine Urobilinogen Not Reportable Ur Leukocyte Esterase Not Reportable Urine RBC 0-2 (0-2) /hpf Urine WBC >50 H (0-5) /hpf Ur Epithelial Cells >20 H (0-2) /hpf Urine Bacteria None Seen (None Seen) Hyaline Casts Present A (None Presnt) /lpf KEYON Screen Pending Anti-Mitochondrial Ab Pending Actin IgG Antibody Pending CMV IgM Ab Pending CMV IgG Ab/TORCH Pending EBV Capsid Ag IgG Ab Pending EBV Capsid Ag IgM Ab Pending EBV EA Restrict+Diffuse Pending EBV Nuclear Antigen Ab Pending EBV Antibody Interp Pending Hepatitis A IgM Ab Pending Hep Bs Antigen Pending Hep Bs Ag Confirmation Pending Hep B Core IgM Ab Pending Hepatitis C Ab (EIA) Pending Diagnostic Findings MRCP CLINICAL HISTORY: elevated LFTs TECHNIQUE: Utilizing a 1.5 Tamara magnet and dedicated coil, multiplanar, multiecho imaging of the upper abdomen was performed utilizing heavily T2 weighted pulsing sequences without IV contrast. COMPARISON STUDY: Right upper quadrant ultrasound and CT of the abdomen and pelvis October 31, 2023. FINDINGS: No intra or extrahepatic biliary ductal dilatation is present. No common bile duct calculi are identified. No pancreatic ductal dilatation is present. There is no peripancreatic fluid. Hepatic steatosis is better depicted on CT and ultrasound performed earlier today. No hepatic lesions are identified on unenhanced exam. Comment bladder sludge is better depicted on prior ultrasound. There is no gallbladder wall thickening. No pericholecystic fluid. No abdominal lymphadenopathy is present. Caliber of visualized small and large bowel are normal. IMPRESSION: 1. No biliary ductal dilatation. No common bile duct calculi identified. 2. Hepatic steatosis and gallbladder sludge, better depicted on prior ultrasound. No evidence for acute cholecystitis. Exam(s): US GALLBLADDER EXAM: US Abdomen Limited, Gallbladder CLINICAL HISTORY: Reason for exam: elevated LFTs. TECHNIQUE: Real-time ultrasound of the right upper quadrant with image documentation. COMPARISON: No relevant prior studies available. FINDINGS: Liver: Coarsened hepatic echotexture with increased hepatic echogenicity. Gallbladder: Biliary sludge without cholelithiasis. Gallbladder wall measures 2 mm in thickness. Negative sonographic Hoffmann sign. Common bile duct: Common bile duct measures 3 mm in diameter. No stones. No dilation. Pancreas: Unremarkable as visualized. Right kidney: Right kidney measures 10.6 cm without hydronephrosis. IMPRESSION: Hepatic steatosis Biliary sludge without cholelithiasis or sonographic evidence of acute cholecystitis Exam(s): CT ABDOMEN + PELVIS With Contrast Oral - High Density Amt: 30 ML GASTRO, IV Amt: 91 ML OPTIRAY 320 EXAM: CT Abdomen and Pelvis With Intravenous Contrast CLINICAL HISTORY: Reason for exam: elevated lfts, RUQ abd pain. TECHNIQUE: Axial computed tomography images of the abdomen and pelvis with intravenous contrast. CTDI is 7.78 mGy and DLP is 340.47 mGy-cm. Automated exposure control was utilized for the study. A dose lowering technique was utilized adhering to the principles of ALARA. CONTRAST: Patient received 30 ML GASTRO of Oral - High Density and 91 ML OPTIRAY 320 of IV contrast COMPARISON: No relevant prior studies available. FINDINGS: Lung bases: Unremarkable. No mass. No consolidation. ABDOMEN: Liver: Hepatic steatosis. Gallbladder and bile ducts: Unremarkable. No calcified stones. No ductal dilation. Pancreas: Unremarkable. No mass. No ductal dilation. Spleen: Unremarkable. No splenomegaly. Adrenals: Unremarkable. No mass. Kidneys and ureters: Unremarkable. No solid mass. No hydronephrosis. Stomach and bowel: Unremarkable. No obstruction. No mucosal thickening. PELVIS: Appendix: No findings to suggest acute appendicitis. Bladder: Unremarkable. No mass. Reproductive: IUD within the uterus. ABDOMEN and PELVIS: Intraperitoneal space: Unremarkable. No free air. No significant fluid collection. Bones/joints: No acute fracture. No dislocation. Soft tissues: Unremarkable. Vasculature: Unremarkable. No abdominal aortic aneurysm. Lymph nodes: Unremarkable. No enlarged lymph nodes. IMPRESSION: No acute findings in the abdomen or pelvis. Normal appearing appendix Hepatic steatosis
[2023-10-31] MEDS: hydrOXYzine HCl 25 MG TAB PO PRN (21:26)
[2023-10-31] MEDS: FAMOTIDINE 40 MG TABLET PO SCH (21:27)
--- NOTE | 2023-10-31 23:03 | Ultrasound Report ---
Exam(s): US OTHER EXAM: US Duplex Arterial/Venous of the Abdomen, Complete CLINICAL HISTORY: Reason for exam: elevated LFTs, abdominal pain. TECHNIQUE: Real-time duplex ultrasound scan of the abdomen integrating B-mode two- dimensional vascular structure, Doppler spectral analysis and color flow Doppler imaging. COMPARISON: Abdominal ultrasound from October 31, 2023 FINDINGS: Portal veins: The portal vein is patent with normal hepatopetal flow in the main portal vein velocity 18 cm/s. The right portal vein is patent, 11 cm/s. The left portal vein is patent, 11 cm/s. Hepatic artery: The hepatic artery is patent with peak systolic velocity of 70 cm/s and a normal waveform with resistive index of 0.69. The right and left hepatic arteries are patent with resistive indices of 0.61 and 0.64. Hepatic veins: The left, right, and middle hepatic veins are patent and unremarkable. Splenic vein: Unremarkable. Normal flow on color and spectral Doppler imaging. Inferior vena cava: The IVC is patent and unremarkable. IMPRESSION: No acute findings in the abdominal vasculature. Electronically signed by: Celso Puga MD 10/31/23 23:02 PM
[2023-11-01 07:41] LABS: INR 1.5 (0.9-1.1); Prothrombin Time 15.6 Seconds (9.0-12.0)
[2023-11-01 07:47] LABS: Albumin Level 2.7 gm/dl (3.4-5.0); BUN Creatinine Ratio 6.7 (10-20); Basophils # (auto) 0.02 K/uL (0.00-0.20); Basophils % (auto) 0.3 %; Bilirubin,Total 6.8 mg/dl (0.2-1.0); Calcium 7.6 mg/dl (8.6-10.3); Eosinophils # (auto) 0.02 K/uL (0.00-0.50); Eosinophils % (auto) 0.3 %; Est GFR (African American) 144.2 ml/min; Est GFR (Non-African American) 124.5 ml/min; Hemoglobin 10.2 g/dl (12.0-16.0); Immature Granulocytes # (auto) 0.01 K/uL (0.01-0.20); Immature Granulocytes % (auto) 0.1 %; Lymphocytes % (auto) 20.5 %; Magnesium 1.3 mg/dl (1.7-2.4); Mean Corpuscular Hemoglobin 33.9 pg (25.0-34.0); Mean Corpuscular Hgb Conc 35.2 g/dL (32.0-36.0); Mean Corpuscular Volume 96.3 fL (80.0-100.0); Mean Platelet Volume 12.8 fL (9.4-12.4); Monocytes # (auto) 0.38 K/uL (0.11-0.59); Monocytes % (auto) 5.6 %; Neutrophils # (auto) 4.99 K/uL (1.40-6.50); Neutrophils % (auto) 73.2 %; Platelet Count 103 K/uL (130-400); RDW Coefficient of Variation 14.9 % (11.5-14.5); RDW Standard Deviation 52.1 fL (36.4-46.3); Red Blood Count 3.01 M/uL (4.20-5.40); Total Protein 5.5 gm/dl (6.0-8.3); White Blood Count 6.82 K/ul (4.8-10.8)
[2023-11-01] MEDS: POTASSIUM CHLORIDE / WTR 10 MEQ/100 ML PLCT IV SCH (09:09)
[2023-11-01] MEDS: LORATADINE 10 MG TAB PO SCH (09:09)
[2023-11-01] MEDS: MAGNESIUM SULFATE / D5W 1 GM/100 ML BAG IV SCH (09:09)
[2023-11-01] MEDS: busPIRone 5 MG TAB PO PRN (09:09)
[2023-11-01] MEDS: FLUTICASONE PROPIONATE NA SPR 16 GM BTL NAE SCH (09:56)
[2023-11-01] MEDS: SODIUM CHLORIDE 0.9% IV ONE (12:19)
[2023-11-01] MEDS: SINCALIDE IV ONE (12:19)
[2023-11-01] MEDS: ACETAMINOPHEN 325 MG TAB PO PRN (12:26)
--- NOTE | 2023-11-01 12:37 | Communication Note ---
Date of Service: November 01, 2023 Patient not in room during rounds, down for HIDA scan. and parents in room. Dr. Fatima discussed with family pending HIDA results , we still aurora mmend advanced endoscopist evaluation with EGD/EUS +/- ERCP given persistently elevated bilirubin of 6.8 (9.0 yesterday) prior to any operative intervention for cholecystectomy. Will await HIDA scan results, if no sign of biliary obstruction on hida scan can likely plan for outpatient GI procedures in next week however if there is any biliary obstruction she will need transfer for ERCP more acutely. Continue pain management and antiemetics as needed. Continue medical management.
--- NOTE | 2023-11-01 12:56 | Nuclear Medicine Report ---
NM hepatobiliary EF CLINICAL HISTORY: nausea, vomiting, abdominal pain TECHNIQUE: Following the intravenous injection of 5.5 mCi of Tc-99m labeled Technetium 99m mebrofeni n, multiple images of the upper abdomen were obtained in the anterior projection with uptake measurem ents of the gallbladder obtained. Once the gallbladder and small bowel were visualized, the patient w as intravenously infused over 30 minutes with 0.02 mcg/kg of Sincalide (CCK), and imaging and uptakes were again obtained. Comparison: None available at the time of this dictation. FINDINGS: Sequential images demonstrate normal uptake in the liver, common bile duct, gallbladder, an d small bowel. No defects in uptake are identified. Subsequent imaging after the administration of si ncalide demonstrates prompt elimination of the radiotracer from the gallbladder. The calculated gallbladder ejection fraction based on uptake measurements is 31%. IMPRESSION: Satisfactory uptake with less than normal excretion of tracer from the gallbladder. Findings can be s een in gallbladder dysfunction.. Reference: Normal gallbladder ejection fraction is greater than 33%. ACT 112: Negative or not required by law. Electronically signed by: Ambrosio Lopez M.D. 11/01/2023 12:54 PM
[2023-11-01] MEDS: LORazepam 0.5 MG TAB PO PRN (16:14)
--- NOTE | 2023-11-01 16:59 | Hospitalist Progress Note ---
Date of Service November 01, 2023 Assessment & Plan (1) Elevated LFTs: Plan: Presents with elevated LFTs in a cholestatic pattern with total bilirubin of 9 on admission, AST 186, ALT 66, alkaline phosphatase 245. With associated N/V/abd pain and 20+ lb weight loss over the last year. RUQ US with bile sludge in GB CT A/P with fatty liver and hepatomegaly but no GB issues, no stones, no CBD dilation MRCP negative Portal venous Doppler negative HIDA scan now negative for acute cholecystitis but shows gallbladder dysfunction with calculated EF of 31% with normal being above 33% LFTs trending downward today, INR elevated at 1.5, and platelets mildly low at 103 Continues with abdominal pain but nausea/vomiting is improved Suspect biliary obstruction with stricture or choledocholithiasis not showing up on imaging versus chronic cholecystitis or dyskinesia of the gallbladder and fatty liver Could also have underlying PBC or PSC No evidence of sepsis or infection at this time-remains afebrile, no leukocytosis-therefore no antibiotics or urgent need for EUS/ERCP at this time Only new medication is Ajovy and no known side effect of liver injury Appreciate GI, Surgery consults Plan is for expedited outpatient EGD/colonoscopy/EUS with liver biopsy and possible ERCP-I discussed her care with Dr. Jesus Live of [facility] who will perform these tests as an outpatient Advance diet to low-fat Continue IV fluids and replacing electrolytes Follow LFTs, CBC, INR, BMP in the morning Follow-up on AMA, anti-smooth muscle ab, KEYON, acute Hepatitis panel, CMV, EBV which were all pending Hydroxyzine prn itching from jaundice (2) Acute upper abdominal pain: Plan: as above, related to hepatic inflammation, possibly choledocholithiasis despite normal MRCP Continue dilaudid IV prn, APAP prn (3) Dyskinesia of gallbladder: Plan: Abnormal HIDA scan Eventually will need cholecystectomy but needs EUS first to rule out malignancy or other complicating biliary tract or pancreatic issues Follow-up with Dr. Fatima of [facility] surgery after discharge Appreciate surgery consultation (4) Anxiety: Plan: continue home lorazepam, buspar, and sertraline (5) Common migraine without aura: Plan: on Ajovy injections once monthly no acute issues (6) Hypokalemia: Plan: Likely secondary to poor p.o. intake Replace with 50 meq of IV KCl Magnesium very low at 1.3-replaced with 3 g of IV magnesium follow BMP, magnesium in the morning (7) GERD (gastroesophageal reflux disease): Plan: continue PPI, pepcid (8) Fatty liver: Plan: Noted, could be because of cholestatic pattern (9) Hypomagnesemia: Plan: As above, replacing and follow levels (10) Anemia: Plan: Hemoglobin dropped to 10.2, likely some hemodilutional as there is no evidence of bleeding from anywhere Given very poor p.o. intake and weight loss, could have nutritional deficiencies Check iron studies, B12, folate in the morning TSH is normal Follow CBC (11) Thrombocytopenia: Plan: Could be hemodilutional versus from liver dysfunction Check B12 level Follow CBC Plan DVT proph-SCDs, Lovenox Dispo-continued stay on med/surg, but possible discharge home in 1 to 2 days after tolerating low-fat diet and electrolyte abnormalities resolved as long as no fevers or leukocytosis Discussed care with and her parents at bedside Admission and Anticipated Discharge Date Admission Date: October 31, 2023 Subjective Patient seen after return from HIDA scan and is having 2 or 3 out of 10 in severity of pain in the mid abdomen but no nausea and feels ready to eat solid foods. She is having a lot of loose stools that are nonbloody and this has been going on for quite some time. I discussed her care with outside GI with advanced endoscopy who will see her as an outpatient in the near future for EGD/colonoscopy/EUS and liver biopsy I discussed her care with Dr. Fatima of surgery Physical Exam Constitutional: WD/WN, vitals as above Neck: trachea midline, no thyromegaly Respiratory: normal respiratory effort, lungs clear to auscultation Cardiovascular: RRR, no murmur, no edema Chest (Breasts): Chest: normal inspection of chest Gastrointestinal (Abdomen): Inspection/Auscultation: abdomen normal to inspection and normal bowel sounds Percussion/Palpation: + abdomen tender (Mid abdomen and right upper quadrant with tender liver edge), abdomen soft and + hepatomegaly; no guarding Musculoskeletal: Extremities: extremities normal to inspection; no cyanosis and no clubbing Skin: + jaundice Neurologic: moves all extremities and awake; no focal motor deficits Psychiatric: A+Ox3, euthymic affect Lymphatic: no lymphedema Results & Data Results & Data Vital Signs (Past 12 Hours) Vital Signs Temp Pulse Resp BP Pulse Ox O2 Del Method 11/01/23 15:18 36.9 C 98 H 16 117/76 99 Room Air 11/01/23 12:20 36.8 C 97 H 18 145/65 H 100 Room Air 11/01/23 09:05 Room Air 11/01/23 06:35 36.8 C 94 H 16 126/84 97 Room Air Laboratory Results CBC, BMP, LFTs, magnesium, INR reviewed Diagnostic Findings Hepatobiliary Scan Nuclear Medicine 11/01/23 11:29 NM hepatobiliary EF CLINICAL HISTORY: nausea, vomiting, abdominal pain TECHNIQUE: Following the intravenous injection of 5.5 mCi of Tc-99m labeled Technetium 99m mebrofenin, multiple images of the upper abdomen were obtained in the anterior projection with uptake measurements of the gallbladder obtained. Once the gallbladder and small bowel were visualized, the patient was intravenously infused over 30 minutes with 0.02 mcg/kg of Sincalide (CCK), and imaging and uptakes were again obtained. Comparison: None available at the time of this dictation. FINDINGS: Sequential images demonstrate normal uptake in the liver, common bile duct, gallbladder, and small bowel. No defects in uptake are identified. Subsequent imaging after the administration of sincalide demonstrates prompt elimination of the radiotracer from the gallbladder. The calculated gallbladder ejection fraction based on uptake measurements is 31%. IMPRESSION: Satisfactory uptake with less than normal excretion of tracer from the gallbladder. Findings can be seen in gallbladder dysfunction.. Reference: Normal gallbladder ejection fraction is greater than 33%. PG Care Time/CCT Total # of Minutes Spent Total Time Spent with Patient: Total time spent is greater than 50% in coordination of care (as documented) at patient's floor/unit and/or counseling patient: Coding Level of Care Code 43243 SUB INP/OBS CARE 3/50MIN Diagnoses Elevated LFTs R79.89 Acute upper abdominal pain R10.10 Dyskinesia of gallbladder K82.8 Anxiety F41.9 Common migraine without aura G43.009 Hypokalemia E87.6 GERD (gastroesophageal reflux disease) K21.9 Fatty liver K76.0 Hypomagnesemia E83.42 Anemia D64.9 Thrombocytopenia D69.6
[2023-11-02 06:44] LABS: Basophils # (auto) 0.03 K/uL (0.00-0.20); Basophils % (auto) 0.6 %; Eosinophils # (auto) 0.05 K/uL (0.00-0.50); Hematocrit (blood only) 31.3 % (37.0-47.0); Hemoglobin 10.9 g/dl (12.0-16.0); Immature Granulocytes # (auto) 0.02 K/uL (0.01-0.20); Immature Granulocytes % (auto) 0.4 %; Lymphocytes # (auto) 1.02 K/uL (1.20-3.40); Mean Corpuscular Hemoglobin 33.7 pg (25.0-34.0); Mean Corpuscular Hgb Conc 34.8 g/dL (32.0-36.0); Mean Corpuscular Volume 96.9 fL (80.0-100.0); Mean Platelet Volume 12.5 fL (9.4-12.4); Monocytes # (auto) 0.37 K/uL (0.11-0.59); Monocytes % (auto) 7.6 %; Neutrophils # (auto) 3.36 K/uL (1.40-6.50); Neutrophils % (auto) 69.4 %; Platelet Count 102 K/uL (130-400); RDW Coefficient of Variation 15.1 % (11.5-14.5); RDW Standard Deviation 53.4 fL (36.4-46.3); Red Blood Count 3.23 M/uL (4.20-5.40); White Blood Count 4.85 K/ul (4.8-10.8)
[2023-11-02 06:56] LABS: Anion Gap 6 (3-11); BUN Creatinine Ratio 4.4 (10-20); Blood Urea Nitrogen 2 mg/dl (6-23); Calcium 8.1 mg/dl (8.6-10.3); Carbon Dioxide 27 mmol/L (21-32); Chloride 106 mmol/L (98-107); Est GFR (African American) 144.2 ml/min; Est GFR (Non-African American) 124.5 ml/min; Glucose 84 mg/dl (70-99(Fasting)); Potassium 3.4 mmol/L (3.5-5.1); Sodium 139 mmol/L (136-145)
[2023-11-02 06:59] LABS: INR 1.3 (0.9-1.1); Prothrombin Time 13.8 Seconds (9.0-12.0)
[2023-11-02 07:08] LABS: Folate (Folic Acid),Ser orPlas 5.1 ng/ml (>5.38)
[2023-11-02 07:16] LABS: Ferritin 681.6 ng/ml (8-388)
[2023-11-02 07:43] LABS: Alanine Aminotransferase 43 U/L (7-52); Albumin Level 2.9 gm/dl (3.4-5.0); Alkaline Phosphatase 165 U/L (34-104); Aspartate Aminotransferase 118 U/L (13-39); Bilirubin Direct 4.8 mg/dl (0-0.2); Bilirubin,Total 8.1 mg/dl (0.2-1.0); Iron 120 mcg/dl (35-150); Magnesium 1.8 mg/dl (1.7-2.4); Phosphorus 1.1 mg/dl (2.5-4.9); Total Protein 5.8 gm/dl (6.0-8.3); Unsaturated Iron Binding Cap < 55 mcg/dl (155-355)
[2023-11-02] MEDS ORDERED: POTASSIUM PHOS 3 MMOL/1 ML INFUSION IV STA (07:48)
[2023-11-02] MEDS: POTASSIUM PHOSPHATE 24 MMOL in SODIUM CHLORIDE 0.9% 500 ML IV ONE (08:23)
[2023-11-02] MEDS: MAGNESIUM SULFATE / D5W 1 GM/100 ML BAG IV ONE (08:23)
[2023-11-02] MEDS: KETOROLAC TROMETHAMINE 15 MG/ML VIAL IV ONE (09:28)
[2023-11-02] MEDS: FOLIC ACID 1 MG in SYRINGE 9.8 ML IV SCH (09:28)
[2023-11-02 13:32] LABS: CMV IgG Antibody <0.60 U/mL; CMV IgM Antibody <30.00 AU/mL; EBV Nuclear Ag Antibody >600.00 U/mL; EBV Virus Capsid Ag IgG Ab >750.00 U/mL
[2023-11-02 16:02] LABS: Albumin Globulin Ratio 0.9 (0.9-2); Albumin Level 3.4 gm/dl (3.4-5.0); BUN Creatinine Ratio 3.9 (10-20); Bilirubin,Total 9.2 mg/dl (0.2-1.0); Calcium 8.6 mg/dl (8.6-10.3); Est GFR (African American) 138.4 ml/min; Est GFR (Non-African American) 119.4 ml/min; Globulin 3.8 gm/dl (2.5-4.0); Phosphorus 2.2 mg/dl (2.5-4.9); Potassium 4.1 mmol/L (3.5-5.1); Total Protein 7.2 gm/dl (6.0-8.3)
[2023-11-02 16:32] LABS: Cdiff Toxin B Gene (2yr or >) Positive Cdiff Gene (Neg)
[2023-11-02 17:01] LABS: Adenovirus F 40/41 PCR Not Detected (NotDetected); Astrovirus PCR Not Detected (NotDetected); Campylobacter PCR Not Detected (NotDetected); Cryptosporidium PCR Not Detected (NotDetected); Cyclospora cayetanensis PCR Not Detected (NotDetected); Entamoeba histolytica PCR Not Detected (NotDetected); Enteroaggregative E.coli(EAEC) Not Detected (NotDetected); Enteropathogenic E.coli (EPEC) Not Detected (NotDetected); Enterotoxigenic E.coli (ETEC) Not Detected (NotDetected); Giardia lamblia PCR Not Detected (NotDetected); Norovirus GI/GII PCR Not Detected (NotDetected); Plesiomonas shigelloides PCR Not Detected (NotDetected); Rotavirus A PCR Not Detected (NotDetected); Salmonella PCR Not Detected (NotDetected); Sapovirus PCR Not Detected (NotDetected); Shiga-like Toxin E.coli (STEC) Not Detected (NotDetected); Shigella/Enteroinvasive E.coli Not Detected (NotDetected); Vibrio cholerae PCR Not Detected (NotDetected); Vibrio species PCR Not Detected (NotDetected); Yersinia enterocolitica PCR Not Detected (NotDetected)
[2023-11-02] MEDS: CHERRY SYRUP 5 ML UDP PO STA (17:30)
[2023-11-02] MEDS: VANCOMYCIN HCL 125 MG/2.5ML SOLN PO STA (17:30)
[2023-11-02] MEDS: POT PHOSPHATE MONOBASIC W/ SOD TAB PO SCH (17:30)
[2023-11-02 17:34] LABS: Cdiff Antigen Positive
[2023-11-02 17:36] LABS: Cdiff Toxin A+B Positive Cdiff Toxin (Negative)
--- NOTE | 2023-11-02 17:46 | Discharge Summary ---
Discharge Summary Date of Service November 02, 2023 Notes For Next Care Provider Check CBC, BMP, LFTs, magnesium, phosphorus, INR within 1 week Medication Changes From Visit Added hydroxyzine 25 mg p.o. every 6 hours as needed itching Added vancomycin 125 mg p.o. 4 times daily x 10 days Increased pantoprazole to 40 Mg p.o. twice daily Added folic acid 1 mg p.o. daily Admission HPI Per Admitting Provider This pt is a 43 yo female with a h/o migraine headaches, anxiety, and GERD who presents with progressively worsening mid and right sided abdominal pain with associated nausea/vomiting. She has been having these episodes multiple times per month for the last year where she vomits and has abdominal pain. These episodes became more frequent in the last 2 months especially and she has lost 25 lbs of weight from inability to eat or drink much. She denies hematemesis, melena, or BRBPR. Episodes tend to come on after trying to eat but sometimes she wakes up and has pain and nausea. Denies EtOH use. Her is a STRUCTURAL TECHNICIAN and noted her to be jaundiced and brought her for further evaluation. LFTs markedly abnormal in ER. MRCP obtained STAT which did not show any acute obstruction,. No acute winsome on RUQ US and CT abd/pel here. Given no urgent need for ERCP, will admit to this facility for treatment of her nausea/vomiting, and to expedite specialist evaluation Principal Dx & Hospital Course #1 = Principal Diagnosis (1) Elevated LFTs: Presents with elevated LFTs in a cholestatic pattern with total bilirubin of 9 on admission, AST 186, ALT 66, alkaline phosphatase 245. With associated N/V/abd pain and 20+ lb weight loss over the last year. RUQ US with bile sludge in GB CT A/P with fatty liver and hepatomegaly but no GB issues, no stones, no CBD dilation MRCP negative Portal venous Doppler negative HIDA scan now negative for acute cholecystitis but shows gallbladder dysfunction with calculated EF of 31% with normal being above 33% Patient denies heavy alcohol use currently, but seems like had at least moderate alcohol use in the recent past-question of alcoholic hepatitis contributing versus fatty liver from alcohol use Could be viral hepatitis-hepatitis panel pending Could be secondary to biliary obstruction with stricture or choledocholithiasis not showing up on imaging versus chronic cholecystitis or dyskinesia of the gallbladder and fatty liver Could also have underlying PBC or PSC No evidence of sepsis or infection at this time-remains afebrile, no leukocytosis-therefore no antibiotics or urgent need for EUS/ERCP at this time Only new medication is Ajovy and no known side effect of liver injury EBV titer consistent with old infection, CMV negative LFTs initially trended downward likely due to IV fluid dilution, but then trended back up slightly by the day of discharge, INR elevated at 1.5 initially and trended down to 1.3, and platelets mildly low at 103 and stable, no evidence of bleeding Her abdominal pain is from a tender liver edge that is enlarged but is improved Nausea/vomiting is now resolved and she is tolerating low-fat diet for over 24 hours in the hospital without difficulty Appreciate GI, Surgery consults Plan is for expedited outpatient EGD/colonoscopy/EUS with liver biopsy and possible ERCP-I discussed her care with Dr. Jesus Live of [facility] who will perform these tests as an outpatient within 2 weeks Continue low-fat diet, stay well-hydrated Follow LFTs, CBC, INR, BMP, magnesium, phosphorus within 1 week-discussed with PCP who will order Follow-up on AMA, anti-smooth muscle ab, KEYON, acute Hepatitis panel all of which were still pending at time of discharge Hydroxyzine prn itching from jaundice Counseled on avoidance of all alcohol and no more than 2000 mg of Tylenol daily I discussed her care with her PCP on the day of discharge (2) Acute upper abdominal pain: as above, related to hepatic inflammation, possibly choledocholithiasis despite normal MRCP Improving (3) Dyskinesia of gallbladder: Abnormal HIDA scan Eventually will need cholecystectomy but needs EUS first to rule out malignancy or other complicating biliary tract or pancreatic issues Follow-up with Dr. Fatima of [facility] surgery after discharge Appreciate surgery consultation (4) Anxiety: continue home lorazepam, buspar, and sertraline (5) Common migraine without aura: on Ajovy injections once monthly no acute issues (6) Hypokalemia: Likely secondary to poor p.o. intake-now resolved after replacement and eating more food Magnesium previously very low at 1.3-replaced with IV magnesium and improved follow BMP, magnesium as an outpatient (7) GERD (gastroesophageal reflux disease): continue PPI but increase to twice daily for ongoing upper abdominal pain in case of gastritis or peptic ulcer disease, continue pepcid (8) Fatty liver: Noted, could be related to previous alcohol use as she has no other risk factors for fatty liver such as obesity or diabetes (9) Hypomagnesemia: Resolved with replacement (10) Anemia: Hemoglobin dropped to 10.9, likely some hemodilutional as there is no evidence of bleeding from anywhere Given very poor p.o. intake and weight loss, could have nutritional deficiencies Checked iron studies which showed normal serum iron, transferrin saturation was unable to be calculated, and ferritin was very high in the 600s from inflammation from ongoing liver issues B12 normal Folate low at 5-replace with folate acid 1 mg p.o. daily TSH is normal Follow CBC as an outpatient Increased Protonix to twice daily in case of peptic ulcer disease (11) Thrombocytopenia: Could be hemodilutional versus from liver dysfunction B12 level normal Follow CBC as an outpatient (12) C. difficile diarrhea: Having ongoing loose stools for quite some time. Did take a few doses of Cipro just before admission Stool PCR negative C. difficile gene is positive, toxin pending at time of discharge No colitis on CT scan Nonetheless, given ongoing diarrhea and positive C. difficile gene, will treat empirically with 10 days of vancomycin 125 mg p.o. 4 times daily Plan DVT proph-SCDs, Lovenox Dispo-discharge to home Discussed care with on the phone and her parents at bedside. Also discussed her care with her primary care doctor on the day of discharge Discharge Exam Constitutional WD/WN, vitals as above Neck trachea midline, no thyromegaly Respiratory normal respiratory effort, lungs clear to auscultation Cardiovascular RRR, no murmur, no edema Chest (Breasts) Chest: normal inspection of chest Gastrointestinal (Abdomen) Inspection/Auscultation: abdomen normal to inspection and normal bowel sounds Percussion/Palpation: + abdomen tender (Mid abdomen and right upper quadrant with tender liver edge), abdomen soft and + hepatomegaly; no guarding Musculoskeletal Extremities: extremities normal to inspection; no cyanosis and no clubbing Skin + jaundice Neurologic moves all extremities and awake; no focal motor deficits Psychiatric A+Ox3, euthymic affect Lymphatic no lymphedema Updated Medication List Medication Instructions Recorded Confirmed Type fluticasone propionate 50 1 sprays intranasal DAILY #1 g 03/04/19 10/31/23 History mcg/actuation nasal spray,suspension loratadine 10 mg tablet (Claritin) 10 mg PO DAILY #30 tabs 03/04/19 10/31/23 Rx levonorgestrel 21 mcg/24 hours (8 1 ea intrauterine UD 04/04/19 10/31/23 History yrs) 52 mg intrauterine device buspirone 10 mg tablet 10 mg PO BID PRN anxiety #90 tabs 02/26/23 10/31/23 Rx topiramate 25 mg tablet 25 mg PO DAILY #90 tabs 04/16/23 10/31/23 Rx sertraline 50 mg tablet 50 mg PO DAILY #90 tabs 05/09/23 10/31/23 Rx famotidine 40 mg tablet 40 mg PO HS #90 tabs 05/24/23 10/31/23 Rx digital therapeutic,TAHMINA device #1 ea 09/12/23 09/18/23 Rx ubrogepant 100 mg tablet (Ubrelvy) 100 mg PO ONCE PRN migraine 09/12/23 10/31/23 Rx headache 30 days #10 tabs lorazepam 0.5 mg tablet (Ativan) 0.5 mg PO BID PRN anxiety #30 tabs 09/18/23 10/31/23 Rx ondansetron 8 mg disintegrating 8 mg PO Q8H PRN nausea and 09/18/23 10/31/23 Rx tablet vomiting #20 tabs fremanezumab-vfrm 225 mg/1.5 mL 225 mg (1.5 mL) subcut MONTHLY 90 10/11/23 10/31/23 Rx subcutaneous auto-injector (Ajovy) days #135 mL ciprofloxacin HCl 500 mg tablet 500 mg PO BID 5 days #10 tabs 10/29/23 10/31/23 Rx (Cipro) fluconazole 150 mg tablet 150 mg PO ONCE 1 day #1 tab 10/29/23 10/31/23 Rx folic acid 1 mg tablet 1,000 mcg PO DAILY #30 tabs 11/02/23 Rx hydroxyzine HCl 25 mg tablet 25 mg PO Q6H PRN itching #30 tabs 11/02/23 Rx ondansetron 4 mg disintegrating 4 mg PO Q8H PRN nausea and 11/02/23 Rx tablet vomiting #20 tabs pantoprazole 40 mg tablet,delayed 40 mg PO BID #60 tabs 11/02/23 Rx release vancomycin 125 mg capsule 125 mg PO QID 10 days #39 caps 11/02/23 Rx (Vancocin) Hospital Stay Data Consultations 10/31/23 06:57 Consult Gastroenterology Stat ED Decision to Admit Stat 10/31/23 14:50 Consult General Surgery Routine Diagnostic Imagining Performed 10/31/23 01:02 CT Abd and Pelvis [CT abd pelvis oral and IV con] Stat US gallbladder Stat 10/31/23 06:57 MR MRCP Stat 10/31/23 15:15 US portal veins doppler [US duplex portal hepatic veins] Urgent Pending Results Patient Have Any Pending Studies at Discharge: Yes (KEYON, AMA, anti-smooth muscle antibody, hepatitis panel, dengue, C. diff) Discharge Instructions Given to Patient (Per Discharging Provider) You were admitted with abnormal liver function studies. An extensive amount of imaging of the liver did not show a definite cause, but there are still quite a few of the tests that are pending. Dr. Molina is aware and will follow up on these results after discharge. You will need to have an EGD, a colonoscopy, and an Endoscopic Ultrasound (EUS) with [x+1] within 2 weeks and this is being arranged for you. It is very important that you not drink any alcohol and that you limit your Tylenol use to no more than 2000mg each day for the total. If you have a fever or chills, worsening abdominal pain or jaundice,return of your nausea and vomiting, please return to the hospital. You may have C. diff diarrhea-for this, you should take oral Vancomycin four times a day x 10 days. Try to stay well-hydrated and have repeat blood work for you liver tests and electrolytes done with Dr. Molina next week. Total Time Total Time Spent Total Time Spent (In Minutes): 60 minutes Coding Level of Care Code 29941 INP/OBS DISCH >30 MIN Diagnoses Elevated LFTs R79.89 Acute upper abdominal pain R10.10 Dyskinesia of gallbladder K82.8 Anxiety F41.9 Common migraine without aura G43.009 Hypokalemia E87.6 GERD (gastroesophageal reflux disease) K21.9 Fatty liver K76.0 Hypomagnesemia E83.42 Anemia D64.9 Thrombocytopenia D69.6 C. difficile diarrhea A04.72
[2023-11-04 15:12] LABS: Anti Mitochondrial Antibody NEGATIVE (NEGATIVE); Anti Nuclear Antibody Screen NEGATIVE (NEGATIVE); HBSAG NON-REACTIVE (NON-REACTIVE); Hepatitis A Antibody IgM NON-REACTIVE (NON-REACTIVE); Hepatitis B Core Antibody IgM NON-REACTIVE (NON-REACTIVE)
== END 2023-11-02 18:50 | disposition home or self-care (01) | DRG 441 ==
LOC: SUATTDRO → ED 20:47 → EDINP 10-31 10:04 → 3E 10-31 14:02